=== PATIENT | male | born 1995 | race Caucasian/White ===

== ENCOUNTER 2016-05-06 17:18 | Emergency (ER) | payer SELFPAY ==
[~2016-05-06 17:18] MED LIST: ACET325T33 PO
== END 2016-05-06 18:03 | disposition left against medical advice (07) ==
LOC: E/R 17:18
DX: Z53.21 Procedure and treatment not carried out due to patient leaving prior to being seen by health care provider (principal)

== ENCOUNTER 2016-09-12 21:51 | Emergency (ER) | payer OTHER ==
[~2016-09-12] VITALS: Ht 175.3 cm; Wt 93.5 kg
[2016-09-12 21:52] VITALS: Ht 175.3 cm; Wt 93.5 kg
--- NOTE | 2016-09-12 22:50 | RADRPT ---
PROCEDURE: Thoracic spine. CLINICAL INDICATION: Back pain. TECHNIQUE: Three views including AP and lateral views were obtained. COMPARISON: None. FINDINGS: There is no acute fracture or subluxation. Thoracic vertebral body heights and alignment are within normal limits. Intervertebral disk spaces are within normal limits. IMPRESSION: No evidence of fracture or subluxation. .Yair Zuniga MD, Date Time Electronically viewed and signed by .Yair Zuniga MD, MD on 09/12/2016 22:49 .T/
--- NOTE | 2016-09-12 22:51 | RADRPT ---
PROCEDURE: Lumbar spine. CLINICAL INDICATION: Low back pain. TECHNIQUE: Three views including AP, lateral and cone-down lateral view of the lumbar spine were obtained. COMPARISON: None. FINDINGS: There is no acute fracture or subluxation. Lumbar vertebral body heights and alignment are within n ormal limits. Intervertebral disk spaces are within normal limits. The posterior elements are unre markable. IMPRESSION: No evidence of fracture or subluxation. .Yair Zuniga MD, MD Date Time Electronically viewed and signed by .Yair Zuniga MD, on 09/12/2016 22:50 .T/
--- NOTE | 2016-09-12 22:56 | ERD ---
ER Documentation Chief Complaint Date/Time DATE: 09/12/16 TIME: 22:55 Chief Complaint low back pain x 1 day. hx of chronic back pain HPI Patient is a 20-year-old male who has a history of chronic back pain. He states today he was walking his husky in the husky pulled him and he fell forward and landed on his stomach but aggravated pain in his lower back. He now has right-sided thoracic pain and left-sided lumbar spine pain. He is ambulatory. He states he has multiple pain medications at home including ibuprofen, tramadol, and cyclobenzaprine. She just wants x-rays to make sure there is no new injury or fracture. He is ambulatory. No bowel or bladder incontinence. No saddle anesthesia. ROS All systems reviewed and are negative except as per history of present illness. Medications Home Meds Active Scripts Acetaminophen* (Tylenol*) 325 Mg Tablet, 2 TAB PO Q4 Y for PAIN AND OR ELEVATED TEMP, #30 TAB Prov:JAIR TORO PA-C 02/03/16 Allergies Allergies: Coded Allergies: No Known Allergy (Unverified , 09/12/16) PMhx/Soc Medical and Surgical Hx: pt denies Medical Hx, pt denies Surgical Hx Hx Alcohol Use: No Hx Substance Use: No Hx Tobacco Use: No Smoking Status: Never smoker FmHx Family History: No diabetes Physical Exam Vitals Vital Signs Date Time Temp Pulse Resp B/P Pulse Ox O2 Delivery O2 Flow Rate FiO2 09/12/16 21:52 99.0 102 20 136/84 97 Physical Exam General: well developed, well nourished, alert, nontoxic, no distress Head: normocephalic, atraumatic Neck: Supple, nontender, no lymphadenopathy, no midline tenderness Respiratory: Clear to auscaultation bilaterally, speaks in full sentences, no use of accesory muscles or labored breathing, no rales, ronchi, or wheezing Cardiovascular: RRR, No murmurs GI: soft, non tender, non distended, negative murphys sign, negative mcburneys point tenderness, no cva tenderness bilaterally, no rebound or guarding Back: no midline tenderness, no step offs or bony abnormalities, sensation to light touch in tact Extremities: moving all extremities normally, normal gait, no edema Procedures/MDM Patient is a 20-year-old male who fell and not has back pain. He is neurovascular intact and ambulatory. He declined pain medications here. X- rays of the thoracic and lumbar spine were ordered and they were both unremarkable. Patient was given copies of the reports that he can follow-up with primary care. Recommended this patient follow up with her primary care doctor within 48 hours or return to the emergency room for any worsening of symptoms. However this time I do believe there is suitable for outpatient management. I answered all their questions and they agreed with the plan and were discharged home. Departure Diagnosis: Primary Impression: Back pain Condition: Stable Patient Instructions: Back Pain (Acute Or Chronic) Additional Instructions: Call your primary care doctor TOMORROW for an appointment during the next 1-2 days.See the doctor sooner or return here if your condition worsens before your appointment time. AYUSH WELSH PA-C Sep 12, 2016 22:56
[2016-09-12 23:20] VITALS: BP 121/68; PULSE 62; RESP 20; TEMP 98.4
== END 2016-09-12 23:15 | disposition home or self-care (01) ==
LOC: FTE 21:51
DX: M54.5 Low back pain (principal)
CPT/HCPCS: 72072; 72100

== ENCOUNTER 2016-09-28 12:58 | Emergency (ER) | END 2016-09-28 16:52 | disposition home or self-care (01) | DX: R11.10 Vomiting, unspecified (principal); F10.99 Alcohol use, unspecified with unspecified alcohol-induced disorder | CPT/HCPCS: 36415; 80053; 83690; 85025; 96374; 96375; 96376; J2270; J2405; J7030; Z7502; Z7610 ==

== ENCOUNTER 2016-12-26 22:37 | Emergency (ER) | payer OTHER ==
[~2016-12-26] VITALS: Ht 172.7 cm; Wt 92.9 kg
[~2016-12-26 22:37] MED LIST changes: +ONDA4TAB14 PO
[2016-12-26 22:42] VITALS: Ht 172.7 cm; Wt 92.9 kg
[2016-12-26] MEDS ORDERED: KETOROLAC 60 MG INJ IM STA (23:34)
--- NOTE | 2016-12-27 00:17 | RADRPT ---
PROCEDURE: XR Chest. CLINICAL INDICATION: Chest pain. TECHNIQUE: Portable AP semi erect view of the chest was obtained. COMPARISON: None. FINDINGS: The cardiomediastinal silhouette is within normal limits. The lungs are clear. There is no evidenc e for pleural effusion, pneumothorax or pulmonary vascular congestion. The osseous structures are i ntact with no evidence for acute abnormality. RPTAT:HJJR IMPRESSION: No evidence for acute intrathoracic pathology. Physician Anamaria Date Time Electronically viewed and signed by Physician Anamaria on 12/27/2016 00:17 JR/
[2016-12-27] MEDS ORDERED: NAPR-688 PO (00:46)
--- NOTE | 2017-01-14 15:06 | ERD ---
ER Documentation Chief Complaint Chief Complaint chest pain x 2 months HPI This 21 year old male c/o sharp chest pain across his entire chest for two months. It waxes and wanes and seems to be worse with certain movements. Nothing improves it. Sometime it hurts worse on deep breathing. No SOB, N/V, or lightheadedness. ROS All systems reviewed and are negative except as per history of present illness. Medications Home Meds Active Scripts Naproxen* (Naproxen*) 500 Mg Tablet, 500 MG PO BID, #27 TAB Prov:KERRY MCNEAL DO 12/27/16 Ondansetron (Ondansetron Odt) 4 Mg Tab.rapdis, 4 MG PO Q6H Y for NAUSEA AND/OR VOMITING, #15 TAB Prov:DAMION ROONEY PA-C 09/28/16 Acetaminophen* (Tylenol*) 325 Mg Tablet, 2 TAB PO Q4 Y for PAIN AND OR ELEVATED TEMP, #30 TAB Prov:JAIR TORO PA-C 02/03/16 Allergies Allergies: Coded Allergies: No Known Allergy (Unverified , 09/28/16) PMhx/Soc Medical and Surgical Hx: pt denies Medical Hx, pt denies Surgical Hx History of Surgery: No Anesthesia Reaction: No Hx Neurological Disorder: No Hx Respiratory Disorders: No Hx Cardiac Disorders: Yes (HYPERLIPIDEMIA) Hx Psychiatric Problems: No Hx Miscellaneous Medical Probl: Yes (BOARDERLINE DM) Hx Alcohol Use: No (OCCASSIONAL) Hx Substance Use: Yes (MARIJUANA DAILY) Hx Tobacco Use: No Smoking Status: Never smoker Physical Exam Physical Exam Const: [] No distress. Head: Atraumatic Eyes: Normal Conjunctiva ENT: Normal External Ears, Nose and Mouth. Neck: Full range of motion..~ No meningismus. Resp: Clear to auscultation bilaterally Cardio: Regular rate and rhythm, no murmurs Abd: Soft, non tender, non distended. Normal bowel sounds Skin: No petechiae or rashes Ext: No cyanosis, or edema Neur: Awake and alert Psych: Normal Mood and Affect Results 24 hrs Current Medications Medications (Trade) Dose Ordered Sig/Leon Route PRN Reason Start Time Stop Time Status Last Admin Dose Admin Ketorolac Tromethamine (Toradol) 60 mg ONCE STAT IM 12/26/16 23:34 12/26/16 23:36 DC 12/26/16 23:46 Procedures/MDM Atypical chest pain in patient with no risk factors for ACS. Normal EKG and CXR. Pain relieved with 60 mg toradol IM. I have low suspicion for PE, dissection, or other emergent cause. Chest wall musculoskeletal inflamatory condition much more likely. Discharging in stable condition, Naproxen, and instructions for PCP f/u with Echocardiogram. EKG interp: NSR rate of 74, Normal axis, normal intervals, no ST or T wave changes concerning of ACS, Normal EKG. CXR Interp: I see no acute process. No infiltrate, no PTX, no pulm edema, no fractures. Departure Diagnosis: Primary Impression: Costochondritis, acute Additional Impression: Chest pain Condition: Stable Patient Instructions: Costochondritis, Chest Pain, Uncertain Cause Additional Instructions: Call your primary care doctor TOMORROW for an appointment during the next 2-3 days. Request an appointment for an ECHOCARDIOGRAM. See the doctor sooner or return here if your condition worsens before your appointment time. KERRY MCNEAL DO Jan 14, 2017 15:06
== END 2016-12-27 01:16 | disposition home or self-care (01) ==
LOC: FTE 22:37
DX: M94.0 Chondrocostal junction syndrome [Tietze] (principal)
CPT/HCPCS: 71010; 93005; 96372; J1885; Z7502

== ENCOUNTER 2017-02-03 08:56 | Emergency (ER) | payer OTHER ==
[~2017-02-03] VITALS: Ht 175.3 cm; Wt 90.9 kg
[~2017-02-03 08:56] MED LIST changes: +NAPR-688 PO
[2017-02-03 08:58] VITALS: Ht 175.3 cm; Wt 90.9 kg
[2017-02-03] MEDS ORDERED: KETOROLAC 30 MG INJ IV STA (09:15)
[2017-02-03] MEDS ORDERED: METOCLOPRAMIDE 10 MG INJ IV STA (09:15)
[2017-02-03] MEDS ORDERED: DIPHENHYDRAMINE 50 MG INJ IV STA (09:15)
[2017-02-03] MEDS ORDERED: SOD CHLORIDE 0.9% 1,000 ML IV STA (09:15)
--- NOTE | 2017-02-03 09:33 | ERD ---
ER Documentation Chief Complaint Chief Complaint HEADCAHE , FEVER AND VOMITING X 3 DAYS ,HAD TOOTH EXTRACTION LAST WEEK HPI This is a 21-year-old female that presents to the ER with a headache for the last 3 days. Patient states that headache has been severe and constant, it is located in the back of his head and is nonradiating he states it is pulsating in nature. He also admits to tactile fevers at home, chills and nonbilious nonbloody vomiting. Patient recently had a tooth extraction on the left side, and is currently taking amoxicillin. He states that tooth pain has gotten better, he is taking ibuprofen for the pain and states that this has made his stomach upset and is causing him epigastric pain. However denies any right upper quadrant pain or right lower quadrant pain. He denies any diarrhea. He denies any neck pain, neck stiffness. He denies any IV drug use. Denies any head trauma. He denies any vision loss, vision changes. Patient denies any facial pain or any facial swelling. Patient does not have any cough or cold symptoms, however does admit to entire body pain. ROS 12 point review of systems was done, all negative except per HPI. Medications Home Meds Active Scripts Ondansetron Hcl* (Zofran*) 4 Mg Tab, 4 MG PO Q4H Y for NAUSEA AND OR VOMITING for 3 Days, TAB Prov:SHAHBAZ SCHAFER 02/03/17 Acetamin/Butalbital/Caffeine* (Fioricet*) [id number] Tab, 1 TAB PO Q4H Y for PAIN LEVEL 1-5, #15 TAB Prov:SHAHBAZ SCHAFER 02/03/17 Naproxen* (Naproxen*) 500 Mg Tablet, 500 MG PO BID, #27 TAB Prov:KERRY MCNEAL DO 12/27/16 Ondansetron (Ondansetron Odt) 4 Mg Tab.rapdis, 4 MG PO Q6H Y for NAUSEA AND/OR VOMITING, #15 TAB Prov:DAMION ROONEY PA-C 09/28/16 Acetaminophen* (Tylenol*) 325 Mg Tablet, 2 TAB PO Q4 Y for PAIN AND OR ELEVATED TEMP, #30 TAB Prov:JAIR TORO PA-C 02/03/16 Allergies Allergies: Coded Allergies: No Known Allergy (Unverified , 02/03/17) PMhx/Soc Medical and Surgical Hx: pt denies Surgical Hx History of Surgery: No Anesthesia Reaction: No Hx Neurological Disorder: No Hx Respiratory Disorders: No Hx Cardiac Disorders: Yes (HYPERLIPIDEMIA) Hx Psychiatric Problems: No Hx Miscellaneous Medical Probl: Yes (BOARDERLINE DM) Hx Alcohol Use: No (OCCASSIONAL) Hx Substance Use: Yes (MARIJUANA DAILY) Hx Tobacco Use: No Smoking Status: Never smoker Physical Exam Vitals Vital Signs Date Time Temp Pulse Resp B/P Pulse Ox O2 Delivery O2 Flow Rate FiO2 02/03/17 08:58 99.5 82 18 120/59 98 Physical Exam GENERAL: The patient is well developed and appropriate for usual state of health , in no apparent distress. HEENT: Atraumatic. Conjunctivae are pink. Pupils equal, round, and reactive to light. Extraocular muscles are grossly intact. Bilateral tympanic membranes are clear with no evidence of erythema, bulging or perforation. No sinus tenderness. There is no facial swelling, and no swelling around the area of extraction, clot is in place where tooth was extracted. NECK: C-spine is soft and supple. There is no cervical lymphadenopathy. Patient has full and non painful ROM of the neck CHEST: Clear to auscultation bilaterally. There are no rales, wheezes or rhonchi. HEART: Regular rate and rhythm. No murmurs, clicks, rubs or gallops. ABDOMEN: Soft and nontender, nondistended. Negative David sign negative McBurney's point. NEURO: Alert and oriented. Cranial nerves II through XII are intact. Motor strength in all 4 extremities with 5/5 strength. Sensation grossly intact. Normal speech and gait. Negative Rhomberg. +2 DTRs. SKIN: There is no apparent rash or petechia. The skin is warm and dry. Result Diagram: 02/03/17 0930 02/03/17 0930 Results 24 hrs Laboratory Tests Test 02/03/17 09:30 White Blood Count 10.310^3/ul Red Blood Count 5.8510^6/ul Hemoglobin 17.8g/dl Hematocrit 50.9% Mean Corpuscular Volume 87.0fl Mean Corpuscular Hemoglobin 30.4pg Mean Corpuscular Hemoglobin Concent 35.0g/dl Red Cell Distribution Width 11.3% Platelet Count 93446^3/UL Mean Platelet Volume 9.4fl Neutrophils % 78.7% Lymphocytes % 14.8% Monocytes % 5.5% Eosinophils % 0.3% Basophils % 0.4% Nucleated Red Blood Cells % 0.0/100WBC Neutrophils # 8.110^3/ul Lymphocytes # 1.510^3/ul Monocytes # 0.610^3/ul Eosinophils # 0.010^3/ul Basophils # 0.010^3/ul Nucleated Red Blood Cells # 0.010^3/ul Sodium Level 140mmol/L Potassium Level 4.1mmol/L Chloride Level 98mmol/L Carbon Dioxide Level 28mmol/L Anion Gap 18 Blood Urea Nitrogen 15mg/dl Creatinine 1.15mg/dl Glucose Level 106mg/dl Calcium Level 10.2mg/dl Total Bilirubin 0.9mg/dl Direct Bilirubin 0.00mg/dl Indirect Bilirubin 0.9mg/dl Aspartate Amino Transf (AST/SGOT) 28IU/L Alanine Aminotransferase (ALT/SGPT) 45IU/L Alkaline Phosphatase 82IU/L Total Protein 8.8g/dl Albumin 4.9g/dl Globulin 3.90g/dl Albumin/Globulin Ratio 1.25 Current Medications Medications (Trade) Dose Ordered Sig/Leon Route PRN Reason Start Time Stop Time Status Last Admin Dose Admin Sodium Chloride (NS) 1,000 ml @ 1,000 mls/hr Q1H STAT IV 02/03/17 09:15 02/03/17 10:14 DC 02/03/17 09:43 Metoclopramide HCl (Reglan) 10 mg ONCE STAT IV 02/03/17 09:15 02/03/17 09:22 DC 02/03/17 09:42 Ketorolac Tromethamine (Toradol) 30 mg ONCE STAT IV 02/03/17 09:15 02/03/17 09:22 DC 02/03/17 09:42 Diphenhydramine HCl (Benadryl) 25 mg ONCE STAT IV 02/03/17 09:15 02/03/17 09:22 DC 02/03/17 09:42 Procedures/MDM Differential Diagnosis includes but is not limited to; tension headache, migraine headache, cluster headache, sinus headache, nonspecific febrile headache, trigeminal neurologia, subdural hematoma, subarachnoid bleeding, meningitis, encephalitis. Patient is neurologically intact with no focal neurological deficits. At this time headache may be related to migraine disorder. Patient's headache was completely resolved in the ER. He does not have any episodes of vomiting and he is able to tolerate p.o. fluids. Patient' s neurological examination is completely benign, I do not believe that CT imaging is needed at this time because of this. This is not the patient's worst headache of his life. Suspicion for meningitis or encephalitis is low patient is afebrile and extremely well-appearing with no neck stiffness. Area where the tooth was extracted appears to be healing well, with no evidence of dry socket or abscess. Patient was advised to continue taking antibiotics that he is on. I doubt Antonio's angina or deep cavernous thrombosis. Patient will be sent home with Firoshanet and with Germain. He is to follow-up with his primary care doctor within 1-2 days or return to ER sooner if symptoms worsen. My medical decision making shared with the patient he understands and agrees with plan. Departure Diagnosis: Primary Impression: Headache Condition: Stable SHAHBAZ SCHAFER Feb 03, 2017 09:33
[2017-02-03 09:41] LABS: BASOPHILS % 0.4 % (0.0-2.0); EOSINOPHILS % 0.3 % (0.0-7.0); HEMATOCRIT 50.9 % (42.0-52.0); HEMOGLOBIN 17.8 g/dl (14.0-18.0); LYMPHOCYTES # 1.5 10^3/ul (0.8-2.9); LYMPHOCYTES % 14.8 % (15.0-51.0); MEAN CORPUSCULAR HEMOGLOBIN 30.4 pg (29.0-33.0); MEAN PLATELET VOLUME 9.4 fl (7.4-10.4); MONOCYTE # 0.6 10^3/ul (0.3-0.9); MONOCYTES % 5.5 % (0.0-11.0); NEUTROPHIL # 8.1 10^3/ul (1.6-7.5); NEUTROPHILS % 78.7 % (39.0-77.0); PLATELET COUNT 245 10^3/UL (140-415); RED BLOOD COUNT 5.85 10^6/ul (4.70-6.10); RED CELL DISTRIBUTION WIDTH 11.3 % (11.5-14.5); WHITE BLOOD COUNT 10.3 10^3/ul (4.8-10.8)
[2017-02-03 10:29] LABS: ALBUMIN 4.9 g/dl (3.3-4.9); ALBUMIN/GLOBULIN RATIO 1.25; BILIRUBIN,INDIRECT 0.9 mg/dl (0-1.1); BILIRUBIN,TOTAL 0.9 mg/dl (0.2-1.3); CALCIUM 10.2 mg/dl (8.4-10.2); CREATININE 1.15 mg/dl (0.61-1.24); POTASSIUM 4.1 mmol/L (3.5-5.1); TOTAL PROTEIN 8.8 g/dl (6.1-8.1)
[2017-02-03] MEDS ORDERED: ONDA-43 PO (11:02)
[2017-02-03] MEDS ORDERED: FIORICET PO (11:02)
[2017-02-03 11:17] VITALS: BP 118/64; PULSE 75; RESP 19; TEMP 98.2
== END 2017-02-03 11:18 | disposition home or self-care (01) ==
LOC: FTE 08:56
DX: R51 Headache (principal); R11.10 Vomiting, unspecified
CPT/HCPCS: 36415; 80053; 85025; 87400; 96374; 96375; J1200; J1885; J2765; J7030; Z7502

== ENCOUNTER 2018-02-25 03:51 | Emergency (ER) | payer OTHER ==
[~2018-02-25] VITALS: Wt 92.2 kg
[~2018-02-25 03:51] MED LIST changes: +FIORICET PO; +ONDA4TAB13 PO
[2018-02-25 03:53] VITALS: BP 132/79; PULSE 89; RESP 18
--- NOTE | 2018-02-25 05:17 | ERD ---
ER Documentation Chief Complaint Chief Complaint BURNING SENSATION, DYSURIA S/P UNPROTECTED SEX 5 DAYS AGO HPI This is a 22-year-old male with a nonsignificant past medical history presents ED with complaints of dysuria status post having unprotected sex with a female 5 days ago. Patient states that he has had a burning sensation since he had unprotected sex. Denies any hematuria, penile discharge, fever, 2 chills, testicular pain, testicular swelling, back pain and all other symptoms. ROS All systems reviewed and are negative except as per history of present illness. Medications Home Meds Active Scripts Ondansetron Hcl* (Zofran*) 4 Mg Tab, 4 MG PO Q4H PRN for NAUSEA AND OR VOMITING for 3 Days, TAB Prov:SHAHBAZ SCHAFER 02/03/17 Acetamin/Butalbital/Caffeine* (Fioricet*) [id number] Tab, 1 TAB PO Q4H PRN for PAIN LEVEL 1-5, #15 TAB Prov:SHAHBAZ SCHAFER 02/03/17 Naproxen* (Naproxen*) 500 Mg Tablet, 500 MG PO BID, #27 TAB Prov:KERRY MCNEAL DO 12/27/16 Ondansetron (Ondansetron Odt) 4 Mg Tab.rapdis, 4 MG PO Q6H PRN for NAUSEA AND/OR VOMITING, #15 TAB Prov:DAMION ROONEY PA-C 09/28/16 Acetaminophen* (Tylenol*) 325 Mg Tablet, 2 TAB PO Q4 PRN for PAIN AND OR ELEVATED TEMP, #30 TAB Prov:JAIR TORO PA-C 02/03/16 Allergies Allergies: Coded Allergies: No Known Allergy (Unverified , 02/03/17) PMhx/Soc Medical and Surgical Hx: pt denies Surgical Hx History of Surgery: No Anesthesia Reaction: No Hx Neurological Disorder: No Hx Respiratory Disorders: No Hx Cardiac Disorders: Yes (HYPERLIPIDEMIA) Hx Psychiatric Problems: No Hx Miscellaneous Medical Probl: Yes (BOARDERLINE DM) Hx Alcohol Use: No (OCCASSIONAL) Hx Substance Use: Yes (MARIJUANA DAILY) Hx Tobacco Use: No Smoking Status: Never smoker FmHx Family History: No diabetes Physical Exam Vitals Vital Signs Date Temp Pulse Resp B/P (MAP) Pulse Ox O2 O2 Flow FiO2 Time Delivery Rate 02/25/18 98.3 89 18 132/79 94 03:53 (96) Physical Exam Const: No acute distress Head: Atraumatic Eyes: Normal Conjunctiva ENT: Normal External Ears, Nose and Mouth. Neck: Full range of motion. No meningismus. 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, patient is an uncircumcised male, foreskin is retracted, there is no penile discharge appreciated from penis, there are no ulcerations along penis or scrotum, Scrotum: Normal Hernia: None Testes/Epid: Non-tender w/ normal lie Cremaster: Reflex intact Lymph: No inguinal lymphadenopathy Discharge: None Neur: Awake and alert Psych: Normal Mood and Affect Results 24 hrs Laboratory Tests Test 02/25/18 05:17 Urine Color RACHEL Urine Clarity SLIGHTLY CLOUDY Urine pH 5.0 Urine Specific [place] 1.040 Urine Ketones TRACE mg/dL Urine Nitrite NEGATIVE mg/dL Urine Bilirubin 1+ mg/dL Urine Urobilinogen 1+ mg/dL Urine Leukocyte Esterase NEGATIVE Melissa/ul Urine Microscopic RBC 0 /HPF Urine Microscopic WBC 1 /HPF Urine Squamous Epithelial Cells FEW /HPF Urine Bacteria FEW /HPF Urine Mucus MANY /HPF Urine Hemoglobin NEGATIVE mg/dL Urine Glucose NEGATIVE mg/dL Urine Total Protein 2+ mg/dl Current Medications Medications Dose Sig/Leon Start Time Status Last (Trade) Ordered Route PRN Stop Time Admin Dose Reason Admin 1,000 mg ONCE ONCE 02/25/18 DC 02/25/18 Azithromycin PO 05:30 05:19 (Zithromax) 02/25/18 05:31 Ceftriaxone 250 mg ONCE ONCE 02/25/18 DC 02/25/18 Sodium IM 05:30 05:19 (Rocephin) 02/25/18 05:31 Procedures/MDM LAB INTERPRETATION: Gonorrhea and chlamydia pending Urinalysis is remarkable for few bacteria, 1 microscopic WBC, no RBCs, no leukocyte esterase, no nitrite ER COURSE: The patient was given IM ceftriaxone, 1 g of azithromycin The medication was well tolerated and the patient reports improvement in symptoms. The patient was stable throughout ED course. I kept the patient and/or family informed of laboratory and diagnostic imaging results throughout the emergency room course. The patient was promptly evaluated and a treatment plan was devised based on H&P and other data. This plan was discussed with the patient who agreed and had no further questions or concerns prior to discharge. MEDICAL DECISION MAKING: This is a 22-year-old male who presents ED with the dysuria status post having unprotected sex with a female 5 days ago. Given patient's symptoms I will prophylactically treat for gonorrhea and chlamydia. Patient agrees with this plan. Urine gonorrhea and chlamydia test is pending. Testicular exam is normal. Offered scrotal ultrasound but patient refuses at this time. I believe that patient's symptoms are all due to STD. At this time there is no genitourinary emergency. No evidence of testicular torsion, among others. Vitals are stable patient can be managed close outpatient follow-up advised patient to have protected sex. Follow-up with your primary care physician in the next 48 hours. Return to ED with any worsening symptoms DISPOSITION PLAN: We discussed follow up with the patient's primary care doctor within 24 to 48 hours. Patient counseled regarding my diagnostic impression and care plan. Prior to discharge all questions answered. Pt agrees with treatment plan and understands strict return precautions. Precautionary instructions provided including instructions to return to the ER if not improving or for any worsening or changing symptoms or concerns. SPECIALIST FOLLOW UP RECOMMENDED: None Patient has been advised to follow up with primary care in 1-2 days. Disclaimer: Inadvertent spelling and grammatical errors are likely due to EHR/dictation software use and do not reflect on the overall quality of patient care. Also, please note that the electronic time recorded on this note does not necessarily reflect the actual time of the patient encounter. Departure Diagnosis: Primary Impression: Dysuria Additional Impression: STD exposure Condition: Stable Patient Instructions: Dysuria, For Teens: Get Checked for STDs, Teens: STD Symptoms in Men Referrals: COMMUNITY CLINICS Additional Instructions: Patient advised to return to the ED immediately for new or worsening symptoms. Patient advised to follow up with primary care provider in the next 24-48 hours. Patient verbalized understanding and agrees with treatment plan and course of action. If patient has no primary care they may follow up with one of the community clinics listed on the following page or one of the options listed below [facility] [address] [place] [id number] or [facility] [address] [place] [address] or [facility] [address] [place] [address] WEI FARR PA-C Feb 25, 2018 05:17
[2018-02-25] MEDS ORDERED: AZITHROMYCIN 250 MG TAB PO ONE (05:30)
[2018-02-25] MEDS ORDERED: CEFTRIAXONE 250 MG INJ IM ONE (05:30)
== END 2018-02-25 06:04 | disposition home or self-care (01) ==
LOC: FTE 03:51
DX: R30.0 Dysuria (principal); Z20.2 Contact with and (suspected) exposure to infections with a predominantly sexual mode of transmission
CPT/HCPCS: 81001; 87591; 96372; J0696; Z7502; Z7610

== ENCOUNTER 2018-02-27 01:04 | Emergency (ER) | payer OTHER ==
[~2018-02-27] VITALS: Ht 172.7 cm; Wt 94.2 kg
[2018-02-27 01:08] VITALS: BP 132/76; PULSE 102; RESP 20; Ht 172.7 cm; Wt 94.2 kg
[2018-02-27] MEDS ORDERED: KETOROLAC 60 MG INJ IM STA (04:38)
[2018-02-27] MEDS ORDERED: PHENAZOPYRIDINE 100 MG TAB PO ONE (05:00)
--- NOTE | 2018-02-27 05:02 | ERD ---
ER Documentation Chief Complaint Chief Complaint burning/frequent urination x 2 days HPI 22-year-old male presents here to emergency department for complaints of burning sensation dysuria that is been going on for the last 2 days, was seen here in the emergency department, was given antibiotics, continues to have the pain burning pain, 6/10 scale, not better or worse with anything. Urine had unprotected sex 2 weeks ago, denies any penile discharge. Patient denies any rash. Patient denies any fever chills ROS All systems reviewed and are negative except as per history of present illness. Medications Home Meds Active Scripts Ondansetron Hcl* (Zofran*) 4 Mg Tab, 4 MG PO Q4H PRN for NAUSEA AND OR VOMITING for 3 Days, TAB Prov:SHAHBAZ SCHAFER 02/03/17 Acetamin/Butalbital/Caffeine* (Fioricet*) [id number] Tab, 1 TAB PO Q4H PRN for PAIN LEVEL 1-5, #15 TAB Prov:SHAHBAZ SCHAFER 02/03/17 Naproxen* (Naproxen*) 500 Mg Tablet, 500 MG PO BID, #27 TAB Prov:KERRY MCNEAL DO 12/27/16 Ondansetron (Ondansetron Odt) 4 Mg Tab.rapdis, 4 MG PO Q6H PRN for NAUSEA AND/OR VOMITING, #15 TAB Prov:DAMION ROONEY PA-C 09/28/16 Acetaminophen* (Tylenol*) 325 Mg Tablet, 2 TAB PO Q4 PRN for PAIN AND OR ELEVATED TEMP, #30 TAB Prov:JAIR TORO PA-C 02/03/16 Allergies Allergies: Coded Allergies: No Known Allergy (Unverified , 02/03/17) PMhx/Soc History of Surgery: No Anesthesia Reaction: No Hx Neurological Disorder: No Hx Respiratory Disorders: No Hx Cardiac Disorders: Yes (HYPERLIPIDEMIA) Hx Psychiatric Problems: No Hx Miscellaneous Medical Probl: Yes (BACK PROBLEMS) Hx Alcohol Use: Yes (OCASSIONALLY) Hx Substance Use: No Hx Tobacco Use: No FmHx Family History: No diabetes, No coronary disease, No other Physical Exam Vitals Vital Signs Date Temp Pulse Resp B/P (MAP) Pulse Ox O2 O2 Flow FiO2 Time Delivery Rate 02/27/18 98.6 102 20 132/76 97 01:08 (94) Physical Exam GENERAL: The patient is well developed and appropriate for usual state of health, in no apparent distress. CHEST: Clear to auscultation bilaterally. There are no rales, wheezes or rhonchi. HEART: Regular rate and rhythm. No murmurs, clicks, rubs or gallops. No S3 or S4. ABDOMEN: Soft, nontender and nondistended. Good bowel sounds. No rebound or guarding. No gross peritonitis. No gross organomegaly or masses. No David sign or McBurney point tenderness. BACK: No midline or flank tenderness. EXTREMITIES: Equal pulses bilaterally. There is no peripheral clubbing, cyanosis or edema. No focal swelling or erythema. Full range of motion. Grossly neurovascularly intact. NEURO: Alert and oriented. Cranial nerves 2-12 intact. Motor strength in all 4 extremities with 5/5 strength. Sensation grossly intact. Normal speech and gait. SKIN: There is no apparent rash or petechia. The skin is warm and dry. HEMATOLOGIC AND LYMPHATIC: There is no evidence of excessive bruising or lymphedema. No gross cervical, axillary, or inguinal lymphadenopathy. noted normal penile area, no rash no discharge no redness no scrotal redness no tenderness. Results 24 hrs Laboratory Tests Test 02/27/18 04:46 Bedside Urine pH (LAB) 6.0 Bedside Urine Protein (LAB) Negative Bedside Urine Glucose (UA) Negative Bedside Urine Ketones (LAB) Negative Bedside Urine Blood Negative Bedside Urine Nitrite (LAB) Negative Bedside Urine Leukocyte Esterase (L Negative Current Medications Medications Dose Sig/Leon Start Time Status Last (Trade) Ordered Route PRN Stop Time Admin Dose Reason Admin Ketorolac 60 mg ONCE STAT 02/27/18 DC 02/27/18 Tromethamine IM 04:38 04:55 (Toradol) 02/27/18 04:39 200 mg ONCE ONCE 02/27/18 02/27/18 Phenazopyridi PO 05:00 04:54 ne HCl 02/27/18 05:01 (Pyridium) Procedures/MDM Medical decision making: Patient symptoms of dysuria nonspecific at this time, patient was already treated here 2 days ago for urethritis. Patient will be given Pyridium for pain, [place] for severe pain, was advised to follow-up with primary care doctor in 1-2 days for reevaluation. Patient was advised to return follow-up outpatient with urology specialist for further evaluation. Patient was advised to return to emergency department for any worsening symptoms Departure Diagnosis: Primary Impression: Dysuria Condition: Stable Patient Instructions: LEENA Hatch NP Feb 27, 2018 05:02
[2018-02-27] MEDS ORDERED: PHEN-538 PO (05:03)
[2018-02-27] MEDS ORDERED: HYDR-4011 PO (05:03)
== END 2018-02-27 05:41 | disposition home or self-care (01) ==
LOC: FTE 01:04
DX: R30.0 Dysuria (principal)
CPT/HCPCS: 81003; 96372; J1885; Z7502; Z7610

== ENCOUNTER 2018-09-05 10:53 | Emergency (ER) | payer OTHER ==
[~2018-09-05] VITALS: Ht 172.7 cm; Wt 94.6 kg
[~2018-09-05 10:53] MED LIST changes: +HYDR-4011 PO; +IBUP-1542 PO; +ONDA8TAB14 PO; +PHEN-538 PO
[2018-09-05 11:06] VITALS: BP 143/77; PULSE 79; RESP 20; Ht 172.7 cm; Wt 94.6 kg
[2018-09-05] MEDS ORDERED: LIDOCAINE/MYLANTA 40 ML BTL PO STA (12:44)
[2018-09-05] MEDS ORDERED: morphine 4 MG/ML VIAL IV STA (12:44)
[2018-09-05] MEDS ORDERED: BELLADONNA/PHENOBARBITAL TAB PO STA (12:44)
[2018-09-05] MEDS ORDERED: SOD CHLORIDE 0.9% 1,000 ML IV STA (12:44)
[2018-09-05] MEDS ORDERED: KETOROLAC 30 MG INJ IV STA (12:44)
--- NOTE | 2018-09-05 13:01 | ERD ---
ER Documentation Chief Complaint Chief Complaint c/o vomiting, started today, felt something cracked on his lower back HPI 22-year-old male with a history of degenerative disc disease presents with complaint of abdominal pain with associated vomiting as well as back pain which started today. States abdominal pain is diffuse. It is 10 out of 10. Vomitus described as nonbilious and nonbloody. denies any fevers, chills, dysuria, hematuria, diarrhea, hematochezia, chest pain, shortness of breath. ROS All systems reviewed and are negative except as per history of present illness. Medications Home Meds Active Scripts Ibuprofen* (Motrin*) 600 Mg Tab, 600 MG PO Q6, #30 TAB Prov:CASH TEMPLE 09/05/18 Hydrocodone/Acetaminophen ([place] 5-325 Tablet) 1 Each Tablet, 1-2 TAB PO Q6H PRN for PAIN, #10 TAB Prov:CASH TEMPLE 09/05/18 Ondansetron (Ondansetron Odt) 8 Mg Tab.rapdis, 8 MG PO Q6H PRN for NAUSEA AND/OR VOMITING, #10 TAB Prov:CASH TEMPLE 09/05/18 Hydrocodone/Acetaminophen ([place] 5-325 Tablet) 1 Each Tablet, 1 TAB PO Q6H PRN for SEVERE PAIN LEVEL 7-10, #7 TAB Prov:LEENA PIZANO NP 02/27/18 Phenazopyridine Hcl* (Pyridium*) 200 Mg Tab, 200 MG PO TID PRN for URINARY PAIN, #6 TAB Prov:LEENA PIZANO TE[employer]MARKETING [employer]ENT 02/27/18 Ondansetron Hcl* (Zofran*) 4 Mg Tab, 4 MG PO Q4H PRN for NAUSEA AND OR VOMITING for 3 Days, TAB Prov:SHAHBAZ SCHAFER 02/03/17 Acetamin/Butalbital/Caffeine* (Fioricet*) [id number] Tab, 1 TAB PO Q4H PRN for PAIN LEVEL 1-5, #15 TAB Prov:SHAHBAZ SCHAFER 02/03/17 Naproxen* (Naproxen*) 500 Mg Tablet, 500 MG PO BID, #27 TAB Prov:KERRY MCNEAL DO 12/27/16 Ondansetron (Ondansetron Odt) 4 Mg Tab.rapdis, 4 MG PO Q6H PRN for NAUSEA AND/OR VOMITING, #15 TAB Prov:DAMION ROONEY PA-C 09/28/16 Acetaminophen* (Tylenol*) 325 Mg Tablet, 2 TAB PO Q4 PRN for PAIN AND OR ELEVATED TEMP, #30 TAB Prov:JAIR TORO PA-C 02/03/16 Allergies Allergies: Coded Allergies: No Known Allergy (Unverified , 09/05/18) PMhx/Soc History of Surgery: No Anesthesia Reaction: No Hx Neurological Disorder: No Hx Respiratory Disorders: No Hx Cardiac Disorders: Yes (HYPERLIPIDEMIA) Hx Psychiatric Problems: No Hx Miscellaneous Medical Probl: Yes (BACK PROBLEMS) Hx Alcohol Use: Yes (OCASSIONALLY) Hx Substance Use: No Hx Tobacco Use: No Smoking Status: Never smoker FmHx Family History: No diabetes, No coronary disease, No other Physical Exam Vitals Vital Signs Date Temp Pulse Resp B/P (MAP) Pulse Ox O2 O2 Flow FiO2 Time Delivery Rate 09/05/18 98.1 79 20 143/77 97 11:06 (99) Physical Exam Const: No acute distress Head: Atraumatic Eyes: Normal Conjunctiva ENT: Normal External Ears, Nose and Mouth. Neck: Full range of motion. No meningismus. Resp: Clear to auscultation bilaterally Cardio: Regular rate and rhythm, no murmurs Abd: Diffusely tender with positive McBurney's. Patient unable to jump up and down. Skin: No petechiae or rashes Back: No midline or flank tenderness Ext: No cyanosis, or edema Neur: Awake and alert Psych: Normal Mood and Affect Result Diagram: 09/05/18 1307 09/05/18 1307 Results 24 hrs Laboratory Tests Test 09/05/18 13:07 White Blood Count 13.0 10^3/ul Red Blood Count 5.68 10^6/ul Hemoglobin 17.3 g/dl Hematocrit 50.6 % Mean Corpuscular Volume 89.1 fl Mean Corpuscular Hemoglobin 30.5 pg Mean Corpuscular Hemoglobin Concent 34.2 g/dl Red Cell Distribution Width 11.9 % Platelet Count 225 10^3/UL Mean Platelet Volume 9.9 fl Immature Granulocytes % 0.800 % Neutrophils % 84.1 % Lymphocytes % 10.2 % Monocytes % 4.5 % Eosinophils % 0.1 % Basophils % 0.3 % Nucleated Red Blood Cells % 0.0 /100WBC Immature Granulocytes # 0.100 10^3/ul Neutrophils # 11.0 10^3/ul Lymphocytes # 1.3 10^3/ul Monocytes # 0.6 10^3/ul Eosinophils # 0.0 10^3/ul Basophils # 0.0 10^3/ul Nucleated Red Blood Cells # 0.0 10^3/ul Urine Color YELLOW Urine Clarity CLEAR Urine pH 6.0 Urine Specific [place] 1.024 Urine Ketones NEGATIVE mg/dL Urine Nitrite NEGATIVE mg/dL Urine Bilirubin NEGATIVE mg/dL Urine Urobilinogen NEGATIVE mg/dL Urine Leukocyte Esterase NEGATIVE Melissa/ul Urine Hemoglobin NEGATIVE mg/dL Urine Glucose NEGATIVE mg/dL Urine Total Protein NEGATIVE mg/dl Sodium Level 144 mmol/L Potassium Level 4.7 mmol/L Chloride Level 104 mmol/L Carbon Dioxide Level 29 mmol/L Anion Gap 11 Blood Urea Nitrogen 15 mg/dl Creatinine 0.95 mg/dl Est Glomerular Filtrat Rate mL/min > 60 mL/min Glucose Level 107 mg/dl Calcium Level 9.9 mg/dl Total Bilirubin 0.7 mg/dl Direct Bilirubin 0.00 mg/dl Indirect Bilirubin 0.7 mg/dl Aspartate Amino Transf (AST/SGOT) 34 IU/L Alanine Aminotransferase (ALT/SGPT) 62 IU/L Alkaline Phosphatase 83 IU/L Total Protein 8.9 g/dl Albumin 5.0 g/dl Globulin 3.90 g/dl Albumin/Globulin Ratio 1.28 Lipase 78 U/L Current Medications Medications Dose Sig/Leon Start Time Status Last (Trade) Ordered Route PRN Stop Time Admin Dose Reason Admin Sodium 1,000 ml @ Q1H STAT 09/05/18 DC 09/05/18 Chloride 1,000 mls/hr IV 12:44 13:15 09/05/18 13:43 Morphine 4 mg ONCE STAT 09/05/18 DC 09/05/18 Sulfate IV 12:44 13:16 (morphine) 09/05/18 12:49 40 ml ONCE STAT 09/05/18 DC 09/05/18 Miscellaneous PO 12:44 13:15 Medication 09/05/18 12:49 (Gi Cocktail (2)) [place]/ 2 tab ONCE STAT 09/05/18 DC 09/05/18 Phenobarbital PO 12:44 13:15 () 09/05/18 12:49 Ketorolac 30 mg ONCE STAT 09/05/18 DC 09/05/18 Tromethamine IV 12:44 13:16 (Toradol) 09/05/18 12:49 Ondansetron 4 mg ONCE STAT 09/05/18 DC 09/05/18 HCl (Zofran IV 13:25 13:28 Inj) 09/05/18 13:26 Sodium 100 ml @ ud STK-MED 09/05/18 DC 09/05/18 Chloride ONCE .ROUTE 13:43 14:21 09/05/18 13:44 Iohexol 30 ml STK-MED 09/05/18 DC 09/05/18 (Omnipaque ONCE .ROUTE 13:43 14:21 300mg/ ml) 09/05/18 13:44 Procedures/MDM DIAGNOSTIC IMAGING REPORT 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 CLINICAL INDICATION: Abdomen and pelvis pain. TECHNIQUE: CT scan of the abdomen and pelvis with contrast was performed. The patient was scanned following the uncomplicated intravenous administration of 100 ml of Omnipaque-300. Coronal and sagittal reformatted images were obtained from the axial source images. Images were reviewed on a high-resolution PACS workstation. Total exam DLP is 1187 mGy-cm. CTDIvol is 18 mGy. One or more of the following dose reduction techniques were used: Automated exposure control, adjustment of the mA and/or kV according to patient size, use of iterative reconstruction technique. DICOM images are available. COMPARISON: None. FINDINGS: The lung bases are normal. There is no pleural effusion. There is hepatic steatosis. There is no focal hepatic lesion. The gallbladder and bile ducts are normal. The spleen is normal in size. There is no focal splenic lesion. Both adrenals are normal with no enlargement or mass. The pancreas is unremarkable with no mass or evidence of pancreatitis. Both kidneys demonstrate normal contrast enhancement. There is no renal mass or hydronephrosis. The abdominal aorta is not dilated. There is no retroperitoneal lymphadenopathy or mass. There is no pelvic lymphadenopathy or mass. The bladder and distal ureters are normal. The periappendiceal region is unremarkable with no evidence of appendicitis. The bowel and mesentery are normal. There is no free fluid or free gas. The osseous structures are unremarkable with no fracture or lytic lesion. IMPRESSION: 1. Normal appendix. 2. No bowel obstruction. 3. No pneumoperitoneum. 4. Hepatic steatosis. RPTAT: QQ Physician Rocío Date Time Electronically viewed and signed by Physician Rocío on 09/05/2018 14:55 RD/ CC: CASH TEMPLE [id number] MDM: Given patient's history and physical exam findings decision was made to do CT abdomen with contrast. Results within normal limits. Patient's pain was controlled in the ER and patient felt fine at discharge. Patient most likely has gastroenteritis and the vomiting probably upset his chronic back condition. I have low suspicion for acute coronary syndrome, AAA, mesenteric ischemia, lower lobe pneumonia, DKA, bowel perforation, cholecystitis, choledocholithiasis, ascending cholangitis, hepatic abscess, pancreatitis, PUD, splenic rupture, diverticulitis, pyelonephritis, nephrolithiasis, appendicitis, [testicular torsion] I have low suspicion for epidural abscess, cauda equina, abdominal aortic aneurysm, pyelonephritis, aortic dissection, spinal fracture, or other emergent conditions based on patient history and exam findings. Patient told if they experience leg weakness or numbness, or incontinence they need to return to the ER immediately. At this time, patient is stable for discharge and outpatient management. I have instructed the patient to follow-up with his/her primary care physician in 1-2 days. I have discussed with the patient the possibility of needing to see a specialist for further workup and imaging studies if symptoms persist. I have instructed the patient to promptly return to the ER for any new or worsening symptoms including but not limited to increased pain, fever, nausea, vomiting, weakness or LOC. The patient and/or family expressed understanding of and agreement with this plan. All questions were answered. Home care instructions were provided. DISCLAIMER: Inadvertent spelling and grammatical errors are likely due to EHR/dictation software use and do not reflect on the overall quality of patient care. Also, please note that the electronic time recorded on this note does not necessarily reflect the actual time of the patient encounter. Departure Diagnosis: Primary Impression: Abdominal pain Additional Impression: Back pain Condition: Stable CASH TEMPLE Sep 05, 2018 13:01
[2018-09-05] MEDS ORDERED: ONDANSETRON 4 MG INJ IV STA (13:25)
[2018-09-05] MEDS ORDERED: SOD CHLORIDE 0.9% 100 ML ONE (13:43)
[2018-09-05] MEDS ORDERED: IOHEXOL 300MG/ML 30 ML BTL ONE (13:43)
== END 2018-09-05 15:55 | disposition home or self-care (01) ==
LOC: FTE 10:53
DX: M54.9 Dorsalgia, unspecified (principal); R10.84 Generalized abdominal pain
CPT/HCPCS: 36415; 74177; 80053; 81003; 83690; 85025; 96361; 96374; 96375; J1885; J2270; J2405; J7030; Q9967; Z7502; Z7610